=== PATIENT | female | born 1965 | race Asian ===

== ENCOUNTER 2024-10-02 13:18 | Emergency (ER) | payer BC, SELFPAY ==
[2024-10-02 13:27] VITALS: BP 162/83; PULSE 72; RESP 18; TEMP 36.7; O2SAT 97; BMI 31.4
--- NOTE | 2024-10-02 13:35 | XR_ITS ---
Examination: Duplex scan of the lower extremity, unilateral right complete Date and time of exam: October 02, 2024 at 1404 hours INDICATIONS: Right leg swelling and pain Technique: Duplex scan of the extremity veins using B-mode/grayscale imaging and Doppler spectral analysis and color flow Attention is directed to internal echogenicity, compression and augmentation involving these veins, color flow assessment, spectral analysis Findings: Major deep venous structures in the extremity demonstrate normal course and caliber. There is no evidence of deep vein thrombosis. Normal color flow and spectral analysis Impression: Negative for DVT..
--- NOTE | 2024-10-02 13:35 | PD.EDRME ---
Rapid Medical Screening Exam RME Arrival date/time: 10/02/24 13:18 59-year-old female with no known medical history presents to the emergency room with a chief complaint of swelling, tenderness, erythema to the back of the patient's knee x 3 days I have greeted and performed a focused initial assessment of this patient. A comprehensive ED assessment and evaluation of the patient, analysis of all test results, and completion of the medical decision making process will be conducted by additional ED providers. Chief Complaint: Extremity Problem,Nontraumatic Time Seen by Provider: 10/02/24 13:26 Vital signs: Vital Signs Temperature 98.1 F 10/02/24 13:27 Pulse Rate 72 10/02/24 13:27 Respiratory Rate 18 10/02/24 13:27 Blood Pressure 162/83 H 10/02/24 13:27 Pulse Oximetry (%) 97 10/02/24 13:27 Oxygen Delivery Method Room Air 10/02/24 13:27 Vital signs reviewed by provider: Yes
[2024-10-02 14:02] LABS: Basophils % (Auto) 1 % (0-2.5); Eosinophils # (Auto) 0.1 Thou/mm3 (0.0-0.5); Eosinophils % (Auto) 2 % (0-10); Hematocrit 37.1 % (36.0-46.0); Hemoglobin 13.6 g/dL (12.0-16.0); Immature Granulocytes % (Auto) 0 % (0-0); Immature Granulocytes Auto 0.01 Thou/mm3 (0.00-0.00); Lymphocytes # (Auto) 1.6 Thou/mm3 (1.0-4.8); Lymphocytes % (Auto) 34 % (10-50); Mean Corpuscular HGB Conc 36.7 g/dl (31.0-37.0); Mean Corpuscular Hemoglobin 30.5 pg (25.0-35.0); Mean Corpuscular Volume 83 fL (80-100); Monocytes # (Auto) 0.3 Thou/mm3 (0.0-0.8); Monocytes % (Auto) 7 % (0-12); Neutrophils # (Auto) 2.7 Thou/mm3 (1.8-7.7); Neutrophils % (Auto) 56 % (37-80); Nucleated Red Blood Cell % 0 /100 WBC (0); Platelet Count 166 Thou/mm3 (140-440); RDW Standard Deviation 35.8 fL (36.4-46.3); Red Blood Count 4.46 Miln/mm3 (4.00-5.20); White Blood Count 4.8 Thou/mm3 (3.6-11.0)
[2024-10-02 14:10] LABS: Partial Thromboplastin Time 27.3 Seconds (22.0-36.0); Prothrombin Time 10.9 Seconds (9.0-12.2)
[2024-10-02 14:19] LABS: Alanine Aminotransferase 43 U/L (10-49); Albumin, Serum 4.4 gm/dL (3.5-5.0); Albumin/Globulin Ratio 1.5 (1.2-2.2); Alkaline Phosphatase 101 U/L (46-116); Anion Gap 5 (7-16); Aspartate Amino Transferase 24 U/L (0-34); BUN/Creatinine Ratio 20 Ratio (12-20); Bilirubin,Total 0.8 mg/dL (0.3-1.2); Blood Urea Nitrogen 14 mg/dL (9-23); Carbon Dioxide 28.1 mMol/L (20.0-31.0); Chloride 108 mMol/L (98-107); Creatinine (Component) 0.7 mg/dL (0.6-1.3); Estimated Creatinine Clearance 80.3 mL/min (>60); Globulin 2.9 gm/dL (2.3-3.5); Glucose 108 mg/dL (74-106); Osmolality,Calculated 282 (275-295); Potassium 4.3 mMol/L (3.4-5.1); Sodium 141 mMol/L (136-145); Total Protein 7.3 gm/dL (5.7-8.2); eGFR > 60 See Note
--- NOTE | 2024-10-02 15:33 | PD.EDEXREM ---
ED Extremity Problem RME/HPI General Chief complaint: Extremity Problem,Nontraumatic Stated complaint: RIGHT BACK OF KNEE PAIN X 1 WK Time Seen by Provider: 10/02/24 13:26 Source: patient Arrival date/time: 10/02/24 13:18 59-year-old female with no known medical history presents to the emergency room with a chief complaint of swelling, tenderness, erythema to the back of the patient's knee x 3 days Mode of arrival: ambulatory Limitations: no limitations RME / HPI RME / HPI Narrative: 10/02/24 13:18 59-year-old female with no known medical history presents to the emergency room with a chief complaint of swelling, tenderness, erythema to the back of the patient's knee x 3 days I have greeted and performed a focused initial assessment of this patient. A comprehensive ED assessment and evaluation of the patient, analysis of all test results, and completion of the medical decision making process will be conducted by additional ED providers. Related Data Previous Rx's ?Medication ?Instructions ?Recorded dicyclomine 20 mg tablet 20 mg PO QID PRN abdominal pain 10/08/20 #30 tabs sulfamethoxazole 800 1 tab PO BID #14 tabs 10/02/24 mg-trimethoprim 160 mg tablet (Bactrim DS) Allergies Allergy/AdvReac Type Severity Reaction Status Date / Time No Known Drug Allergies Allergy Verified 10/02/24 13:23 Review of Systems Review of Systems Systems Reviewed: All systems reviewed, normal except as documented Constitutional Constitutional: Reports system reviewed and no additional complaints, except as documented, Denies fatigue, Denies fever(s), Denies headache(s) and Denies weakness Eyes Eyes: Reports system reviewed and no additional complaints, except as documented, Denies blurry vision and Denies change in vision ENT Ears, Nose, Mouth, and Throat: Reports system reviewed and no additional complaints, except as documented, Denies otalgia, Denies headache(s), Denies nasal congestion, Denies throat swelling and Denies vertigo Cardiovascular Cardiovascular: Reports system reviewed and no additional complaints, except as documented, Denies chest pain, Denies dyspnea and Denies dyspnea on exertion Respiratory Respiratory: Reports system reviewed and no additional complaints, except as documented, Denies chest congestion, Denies cough, Denies dyspnea, Denies dyspnea on exertion and Denies wheezing Gastrointestinal Gastrointestinal: Reports system reviewed and no additional complaints, except as documented, Denies abdominal pain, Denies cramping, Denies nausea and Denies vomiting Genitourinary Genitourinary: Reports system reviewed and no additional complaints, except as documented Musculoskeletal Musculoskeletal: Reports system reviewed and no additional complaints, except as documented, Reports arthralgias, Denies back pain and Reports stiffness Integumentary/Breasts Skin/Breast: Reports system reviewed and no additional complaints, except as documented and Denies wounds Neurologic Neurologic: Reports system reviewed and no additional complaints, except as documented, Denies confusion, Denies headache(s), Denies lack of coordination, Denies vertigo and Denies weakness Psychiatric Psychiatric: Reports system reviewed and no additional complaints, except as documented, Denies anxiety, Denies confusion, Denies depression, Denies paranoia, Denies suicidal ideation and Denies tactile hallucinations Endocrine Endocrine: Reports system reviewed and no additional complaints, except as documented and Denies fatigue Hematologic/Lymphatic Hematologic/Lymphatic: Reports system reviewed and no additional complaints, except as documented and Denies lymphadenopathy Allergic/Immunologic Allergic/Immunologic: Reports system reviewed and no additional complaints, except as documented, Denies throat swelling, Denies urticaria and Denies wheezing ED Exam General Limitations: Present no limitations General appearance: Present alert and in no apparent distress Head Head exam: Present atraumatic Eye Eye exam: Present normal appearance, PERRL and EOMI ENT ENT exam: Present normal exam, normal oropharynx and mucous membranes moist Neck Neck exam: Present normal inspection, full ROM and trachea midline Chest Chest inspection: Present normal inspection and symmetric chest wall rise Respiratory Respiratory exam: Present normal lung sounds bilaterally Cardiovascular Cardiovascular exam: Present regular rate, normal rhythm and normal heart sounds Abdominal Exam Abdominal exam: Present soft and normal bowel sounds Extremities Exam Extremities exam: Present normal inspection and full ROM Expanded Lower Extremity Exam Hip/Pelvis exam: Present normal inspection Upper leg exam: Present normal inspection, tenderness, swelling and erythema Leg image:  1. Erythema and warmth to the touch Knee exam: Present normal inspection Lower leg exam: Present normal inspection Ankle exam: Present normal inspection Foot/toe exam: Present normal inspection Gait: observed and normal Back Exam Back exam: Present normal inspection and full ROM Neurological Exam Neurological exam: Present alert, oriented X3 and CN II-XII intact Psychiatric Psychiatric exam: Present normal affect and normal mood Skin Skin exam: Present warm, dry, intact and normal color Course Quality Measures none Orders Category Date Time Status US venous doppler LE RT Stat Exams 10/02/24 13:35 Completed CBC Stat Lab 10/02/24 13:47 Completed CMP [Comprehensive Metabolic Panel] Stat Lab 10/02/24 13:47 Completed PT [Prothrombin Time with INR] Stat Lab 10/02/24 13:47 Completed PTT [Partial Thromboplastin Time] Stat Lab 10/02/24 13:47 Completed Vital Signs Vital signs: Vital Signs Temperature 98.1 F 10/02/24 13:27 Pulse Rate 72 10/02/24 13:27 Respiratory Rate 18 10/02/24 13:27 Blood Pressure 162/83 H 10/02/24 13:27 Pulse Oximetry (%) 97 10/02/24 13:27 Oxygen Delivery Method Room Air 10/02/24 13:27 O2 saturation 97% within normal limits Extremity Problem MDM Narrative MDM Narrative:: 59-year-old female with no known medical history presents to the emergency room with a chief complaint of swelling, tenderness, erythema to the back of the patient's knee x 3 days patient is hemodynamically stable she is afebrile not tachypneic not tachycardic and her O2 saturation is 97% on room air Physical examination shows tenderness swelling and erythema to the back of the patient's right knee. The swelling does extend to the top of the patient's calf. However there is a negative Homans' sign as most of the patient's pain is localized to the back of her knee. There is no evidence of any abscess or mass. An ultrasound was completed and was negative for DVT. Antibiotics were sent to the patient's pharmacy for her cellulitis. Patient was given strict return precautions Patient was discharged and educated to follow-up with primary care provider in the next 24 to 48 hours and return to the emergency room for any evidence of worsening signs or symptoms Patient data External records reviewed:: [facility] previous records Clinical information provided by:: patient Social determinants that could affect healthcare access:: none Patient has the following chronic illnesses:: No chronic illness How is presenting disease/condition affected by chronic disease/condition?: no chronic disease Evaluation data The following diagnostics were reviewed and interpreted by me:: lab results and radiology exam(s) Lab and/or radiology exams considered but not ordered:: Labs and radiology exams considered and ordered Interpretation Summary: Doppler ultrasound-Findings: Major deep venous structures in the extremity demonstrate normal course and caliber. There is no evidence of deep vein thrombosis. Normal color flow and spectral analysis Impression: Negative for DVT.. Medications / Prescriptions Medications or Prescriptions considered but not ordered:: Rx given Medication administrations:: Rx given Consultations Consultation(s) initiated? (list below): No Diagnosis Extremity Problem Differential Diagnosis: cellulitis, superficial thrombophlebitis, deep venous thrombosis of upper extremity, lower extremity edema and deep vein thrombosis of lower extremity Most likely diagnosis given after review of the tests above:: Cellulitis Admission Indicated Admission indicated?: not indicated Admission Request Was there a request for admission?: No Disposition Plan Disposition Plan: Discharge Discharge Attestation Discharge Attestation: The patient and all family members were given an opportunity to ask questions and understood the discharge instructions. Discharge instructions specifically effects, indications for sooner follow up or return to the emergency department, and the expected course of current diagnosis. Patient condition: Stable Discharge Plan Plan Patient Disposition: HOME (Self Care) Discharge Disposition comment: Stable Prescriptions/Referrals Prescriptions/Med Rec: New sulfamethoxazole-trimethoprim [Bactrim DS] 800-160 mg tablet 1 tab PO BID Qty: 14 0RF No Action dicyclomine 20 mg tablet 20 mg PO QID PRN (Reason: abdominal pain) Qty: 30 0RF Referrals: Travis Feng MD [Primary Care Provider] - In 1 week Problem List Clinical Impression: Cellulitis of knee Patient/Caregiver Discharge Instructions Education Materials: Discharge Instructions for Cellulitis, ED Cellulitis Additional Instructions: Please follow-up with your primary care provider in the next 24 to 48 hours. An ultrasound was completed and was negative for any blood clots. Antibiotics are sent to your pharmacy to help with this infection. Please take all your antibiotics and follow-up with your primary care provider For any evidence of worsening signs or symptoms return to the emergency room immediately Print Language: Vietnamese Stand Alone Forms: Marcy Award Info., Work/School Release, Patient Portal Info Letter PA/ATA Supervising Physician PA/ATA Supervising Physician: Dr. Larsen
[2024-10-02 15:43] VITALS: BP 122/77; PULSE 78
== END 2024-10-02 15:43 | disposition home or self-care (01) ==
PROVIDERS: Nurse Practitioner Family; Emergency Provider Family Medicine; PCP Family Medicine
DX: L03.115 Cellulitis of right lower limb (principal)
CPT/HCPCS: 36415; 80053; 85025; 85610; 85730; 93971; 99284

== ENCOUNTER → 2024-11-03 | Outpatient (CLI) | payer BC, SELFPAY ==
[2024-11-03 09:52] LABS: Collection Type, Urine Clean Catch; Squamous Epithelial Cell,Urine 0 /hpf (0-5)
[2024-11-03 10:14] LABS: Basophils % (Auto) 1 % (0-2.5); Eosinophils # (Auto) 0.1 Thou/mm3 (0.0-0.5); Eosinophils % (Auto) 1 % (0-10); Hematocrit 38.3 % (36.0-46.0); Immature Granulocytes % (Auto) 0 % (0-0); Immature Granulocytes Auto 0.01 Thou/mm3 (0.00-0.00); Lymphocytes # (Auto) 1.9 Thou/mm3 (1.0-4.8); Lymphocytes % (Auto) 38 % (10-50); Mean Corpuscular HGB Conc 33.9 g/dl (31.0-37.0); Mean Corpuscular Hemoglobin 29.5 pg (25.0-35.0); Mean Corpuscular Volume 87 fL (80-100); Monocytes # (Auto) 0.3 Thou/mm3 (0.0-0.8); Monocytes % (Auto) 5 % (0-12); Neutrophils # (Auto) 2.8 Thou/mm3 (1.8-7.7); Neutrophils % (Auto) 54 % (37-80); Nucleated Red Blood Cell % 0 /100 WBC (0); Platelet Count 177 Thou/mm3 (140-440); RDW Standard Deviation 38.2 fL (36.4-46.3); Red Blood Count 4.41 Miln/mm3 (4.00-5.20); White Blood Count 5.1 Thou/mm3 (3.6-11.0)
[2024-11-03 10:41] LABS: Alanine Aminotransferase 53 U/L (10-49); Albumin, Serum 4.2 gm/dL (3.5-5.0); Albumin/Globulin Ratio 1.7 (1.2-2.2); Alkaline Phosphatase 90 U/L (46-116); Anion Gap 11 (7-16); BUN/Creatinine Ratio 15 Ratio (12-20); Bilirubin,Total 0.6 mg/dL (0.3-1.2); Blood Urea Nitrogen 12 mg/dL (9-23); Calcium 9.2 mg/dL (8.3-10.6); Calcium (Corrected) 9.2 mg/dL (8.5-10.1); Carbon Dioxide 26.9 mMol/L (20.0-31.0); Cardiac Risk Estimate 3.8 RATIO (3.7-5.6); Chloride 108 mMol/L (98-107); Cholesterol 222 mg/dL (132-200); Creatinine (Component) 0.8 mg/dL (0.6-1.3); Globulin 2.5 gm/dL (2.3-3.5); Glucose 99 mg/dL (74-106); HDL Cholesterol 58 mg/dL (40-60); LDL Cholesterol,Calculated 146 mg/dL (0-130); Osmolality,Calculated 290 (275-295); Potassium 3.8 mMol/L (3.4-5.1); Sodium 146 mMol/L (136-145); Total Protein 6.7 gm/dL (5.7-8.2); Triglycerides 90 mg/dL (30-150); eGFR > 60 See Note
[2024-11-03 10:53] LABS: Glucose Estimated Average 105 mg/dL (80-131); Hemoglobin A1C 5.3 % Hgb (4.8-6.0)
[2024-11-03 10:57] LABS: Bilirubin,Urine Negative (Negative); Blood,Urine Negative (Negative); Clarity,Urine Clear (Clear/Hazy); Color,Urine Yellow (Lt Yel-Yel); Glucose, Urine Negative (Negative); Hyaline Casts,Urine < 1 /hpf (0-1); Ketones,Urine Negative (Negative); Leukocyte Esterase,Urine Positive (Negative); Nitrite,Urine Negative (Negative); PH,Urine 5.5 (5.0-7.0); Protein,Urine Negative (Neg - Trace); RBC,Urine 9 /hpf (0-3); Specific Gravity,Urine 1.029 (1.001-1.035); Urobilinogen,Urine Negative mg/dL (0.0-1.0); WBC,Urine 1 /hpf (0-5)
== END | disposition home or self-care (01) ==
LOC: COPL 09:24
PROVIDERS: PCP Family Medicine; Referring Provider Family Medicine; Visit Provider Family Medicine
DX: Z00.00 Encounter for general adult medical examination without abnormal findings (principal); E66.811 Obesity, class 1; Z83.3 Family history of diabetes mellitus
CPT/HCPCS: 36415; 80053; 80061; 81001; 83036; 85025

== ENCOUNTER 2024-11-14 17:05 | Emergency (ER) | payer BC, SELFPAY ==
[2024-11-14 17:45] VITALS: BP 137/72; PULSE 61; RESP 18; TEMP 37.2; O2SAT 97; BMI 27.4
--- NOTE | 2024-11-14 18:05 | XR_ITS ---
Examination: CT right knee, without contrast. 2-D sagittal reconstructions. 2-D coronal reconstructions. 3-D reconstructions. Date and time of exam:2024 1841 hours INDICATIONS: Right knee redness swelling and pain beginning one month ago CTDI: vol (mGy):8.44 DLP: (mGycm):303 Technique: Multiple 1.25 mm axial sections of the right knee without intravenous contrast have been obtained. 2-D sagittal and coronal reconstructions have been obtained. 3-D reconstructions have been obtained. Low dose protocols were performed. One or more of the following dose reduction techniques were used; automated exposure control, adjustment of the mA and/or KV according to patient size, use of iterative reconstruction technique. Findings: Distal femur femoral condyles intact Mild narrowing lateral patellofemoral joint Patella is intact, mild edema or prepatellar in the subcutaneous tissue Tibial plateau proximal tibia fibular head and neck intact Small knee effusion No prepatellar abscess or hematoma Mild narrowing medial joint space Impression : Mild osteoarthritis Small knee effusion No fracture or dislocation. No prepatellar abscess or hematoma Consider elective MRI knee without contrast follow-up
--- NOTE | 2024-11-14 18:05 | PD.EDEXREM ---
ED Extremity Problem RME/HPI General Chief complaint: Extremity Problem,Nontraumatic Stated complaint: Cellulitis to right leg, pain Time Seen by Provider: 11/14/24 17:50 Arrival date/time: 11/14/24 17:05 RME / HPI RME / HPI Narrative: 59-year-old female patient came in for evaluation regarding worsening right knee pain. Patient has been having right knee pain for the last 2 weeks, getting worse this morning, described as sharp pain, worse with range of motion of the knee. Patient denies any fall denies any redness denies any trauma. Patient was seen here 2 weeks ago, and was diagnosed with cellulitis of the knee. Patient denies any fever denies any other complaints. Related Data Previous Rx's ?Medication ?Instructions ?Recorded dicyclomine 20 mg tablet 20 mg PO QID PRN abdominal pain 10/08/20 #30 tabs sulfamethoxazole 800 1 tab PO BID #14 tabs 10/02/24 mg-trimethoprim 160 mg tablet (Bactrim DS) dexamethasone 6 mg tablet 6 mg PO QDAY #7 tabs 11/14/24 ibuprofen 800 mg tablet 800 mg PO Q8H PRN pain #30 tabs 11/14/24 Allergies Allergy/AdvReac Type Severity Reaction Status Date / Time No Known Drug Allergies Allergy Verified 11/14/24 17:10 Review of Systems Review of Systems Narrative Review of Systems: Review of system reviewed and within normal limits except mentioned in HPI ED Exam Narrative Physical exam: VITAL SIGNS: Reviewed. GENERAL APPEARANCE: Alert and interactive, follows commands, no acute distress, HEAD AND FACE: Non-traumatic. ENT: PERRL, pink conjunctivitis, eyelid no trauma, Mucous membrane moist. NECK: Supple, nontender, no nuchal rigidity. CHEST: No tenderness, no crepitus, no paradoxical movement, no retractions. LUNGS: Clear, well ventilated, symmetric, no rales, no wheezing, no ronchi, no stridor, good breath sounds bilaterally. HEART: Regular rate, regular rhythm, no murmur, no gallops. ABDOMEN: Soft, positive bowel sounds, nondistended, no guarding, nontender, no rebound, no masses, RECTAL: Deferred. GENITAL: Deferred. NEUROLOGICAL: Gross motor function intact sensory function intact, Appropriate for age. MUSCULOSKELETAL: low back nontender, full range of motion. No swelling no redness EXTREMITIES: Right knee tenderness, with limitation range of motion. SKIN: Color pink, dry, no rash, no lacerations, no abrasions, no contusions. LYMPHATICS: Deferred. Course Quality Measures none Orders Category Date Time Status Crutches .NOW Care 11/14/24 20:[address] knee RT wo con Stat Exams 11/14/24 18:05 Completed Ketorolac Inj [Toradol Inj] Med 11/14/24 18:03 Discontinued 30 mg IM X1 ONE Vital Signs Vital signs: Vital Signs Temperature 98.9 F 11/14/24 17:45 Pulse Rate 61 11/14/24 17:45 Respiratory Rate 18 11/14/24 17:45 Blood Pressure 137/72 H 11/14/24 17:45 Pulse Oximetry (%) 97 11/14/24 17:45 Oxygen Delivery Method Room Air 11/14/24 17:45 Extremity Problem MDM Narrative MDM Narrative:: 59-year-old female patient came in for evaluation regarding worsening right knee pain. Patient has been having right knee pain for the last 2 weeks, getting worse this morning, described as sharp pain, worse with range of motion of the knee. Patient denies any fall denies any redness denies any trauma. Patient was seen here 2 weeks ago, and was diagnosed with cellulitis of the knee. Patient denies any fever denies any other complaints. CT scan of the knee came back with Mild osteoarthritis Small knee effusion No fracture or dislocation. No prepatellar abscess or hematoma Consider elective MRI knee without contrast follow-up Patient data External records reviewed:: None Clinical information provided by:: none Social determinants that could affect healthcare access:: none Patient has the following chronic illnesses:: Plan How is presenting disease/condition affected by chronic disease/condition?: no chronic disease Evaluation data The following diagnostics were reviewed and interpreted by me:: radiology exam(s) Lab and/or radiology exams considered but not ordered:: None Interpretation Summary: See results MDM Medications / Prescriptions Medications or Prescriptions considered but not ordered:: None Medication administrations:: Medication Administration History Discontinued Medications Ketorolac Tromethamine (Ketorolac Inj 60 Mg/2 Ml Vial) 30 mg IM X1 ONE Stop: 11/14/24 18:04 Last Admin: 11/14/24 19:26 Dose: 30 mg Documented By: Toradol Consultations Consultation(s) initiated? (list below): No Diagnosis Extremity Problem Differential Diagnosis: other (Knee pain, osteoarthritis of the knee, septic knee, ligament injury of the knee) Most likely diagnosis given after review of the tests above:: Knee pain, osteoarthritis of the knee Admission Indicated Admission indicated?: not indicated Explain why admission is indicated or not indicated:: None Admission Request Was there a request for admission?: No Disposition Plan Disposition Plan: Discharge Discharge Attestation Discharge Attestation: The patient and all family members were given an opportunity to ask questions and understood the discharge instructions. Discharge instructions specifically effects, indications for sooner follow up or return to the emergency department, and the expected course of current diagnosis. Patient condition: Stable Discharge Plan Plan Patient Disposition: HOME (Self Care) Discharge Disposition comment: Stable Prescriptions/Referrals Prescriptions/Med Rec: New dexamethasone 6 mg tablet 6 mg PO QDAY Qty: 7 0RF ibuprofen 800 mg tablet 800 mg PO Q8H PRN (Reason: pain) Qty: 30 0RF No Action dicyclomine 20 mg tablet 20 mg PO QID PRN (Reason: abdominal pain) Qty: 30 0RF sulfamethoxazole-trimethoprim [Bactrim DS] 800-160 mg tablet 1 tab PO BID Qty: 14 0RF Referrals: Travis Feng MD [Primary Care Provider] - In 1 week Problem List Clinical Impression: Knee joint pain, Knee osteoarthritis Patient/Caregiver Discharge Instructions Discharge Activity: activity as tolerated Education Materials: ED Arthralgia Additional Instructions: Thank you for the opportunity for serving you today. You are stable for discharged . You are advised to: Follow-up with your PCP in 1 to 2 days Return to ED for worsening of symptoms Increase oral fluids Take medication as prescribed As your PCP. if they Can do MRI of the knee outpatient. Print Language: Kyrgyz Stand Alone Forms: Marcy Award Info., Patient Portal Info Letter ROSHAN/ATA Supervising Physician ROSHAN/ATA Supervising Physician: MD Coby
[2024-11-14] MEDS: KETOROLAC INJ 60 MG/2 ML VIAL 30 MG IM (19:26)
== END 2024-11-14 21:02 | disposition home or self-care (01) ==
PROVIDERS: Emergency Provider Emergency Medicine; PCP Family Medicine
DX: M17.11 Unilateral primary osteoarthritis, right knee (principal)
CPT/HCPCS: 73700; 96372; 99284; J1885